=== PATIENT | female | born 1945 | race Caucasian/White ===

== ENCOUNTER 2018-09-04 03:25 | Emergency (ER) | payer MEDICARE ==
[~2018-09-04] VITALS: Ht 170.1 cm; Wt 77.1 kg
--- NOTE | ~2018-09-04 | EKG ---
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
[~2018-09-04 03:25] MED LIST: CIPRO XR500 MG PO; CITALOPRAM20 MG; CITRACAL + D 311 TAB PO; COMBIVENT1 ARO IH; DOXYCYCLINE MO100 MG PO; ELITE MAGNESIUM1 TAB PO; HYDROCHLOROTHIA25 MG; LISINOPRIL10 MG; NAPROSYN500 MG PO; PHENERGAN W/DM120 ML PO; PRAVACHOL40 MG PO; PROTONIX40 MG PO; PYRIDIUM200 MG PO; VICODIN 5/500 505 MG PO; VITAMIN D5000 I2 PO; VOLTAREN50 M1 PO
[2018-09-04 03:48] LABS: BILIRUBIN NEGATIVE (NEGATIVE); BLOOD TRACE-INTACT (NEGATIVE); CLARITY CLEAR (CLEAR); COLOR YELLOW (YELLOW); GLUCOSE NEGATIVE (NEGATIVE); KETONE NEGATIVE (NEGATIVE); LEUKO ESTERASE NEGATIVE (NEGATIVE); NITRITE NEGATIVE (NEGATIVE); SPECIFIC GRAVITY 1.015 (1.005-1.030); UROBILINOGEN 0.2 E.U./dl (0.2-1.0)
[2018-09-04 03:55] LABS: WBC 0-2 wbc/hpf (0-5)
[2018-09-04 04:08] LABS: HEMATOCRIT 35.6 % (37.0-47.0); HEMOGLOBIN 11.9 g/dl (12.0-16.0); MEAN CELL VOLUME 88.8 fl (81.0-99.0); MEAN CORPUSCULAR HGB 29.7 pg (27.0-31.0); MEAN CORPUSCULAR HGB CONC 33.4 g/dl (33.0-37.0); MEAN PLATELET VOLUME 10.3 fl (9.6-12.3); PLATELET COUNT AUTOMATED 140 10*3/uL (130-400); RED BLOOD COUNT 4.01 10*6/uL (4.10-5.10); RED CELL DISTRI WIDTH 13.4 % (0-14.5); WHITE BLOOD COUNT 10.4 10*3/uL (4.8-10.8)
[2018-09-04 04:25] LABS: ALBUMIN 2.6 gm/dl (3.1-4.5); ALKALINE PHOSPHATASE 71 U/L (45-117); BUN 21 mg/dl (7-24); CHLORIDE 105 mmol/L (98-107); CREATININE 0.54 mg/dL (0.55-1.02); POTASSIUM 3.7 mmol/L (3.5-5.1); SGOT/AST 20 IU/L (3-35); SGPT/ALT 18 U/L (12-78); SODIUM 139 mmol/L (136-145); TOTAL PROTEIN 5.8 gm/dL (6.4-8.2)
[2018-09-04 04:27] LABS: TOTAL CELLS COUNTED 100 #CELLS
[2018-09-04 04:28] LABS: PLATELET SUFFICIENCY LOW (NORMAL)
[2018-09-04 04:29] LABS: TROPONIN I < 0.015 ng/ml (<0.045)
[2018-09-04] MEDS ORDERED: ANASTROZOLE1 M1 PO (05:03)
[2018-09-04] MEDS ORDERED: ASPIRIN CHEWABL81 MG PO (05:03)
[2018-09-04] MEDS ORDERED: BACLOFEN20 M1 PO (05:03)
[2018-09-04] MEDS ORDERED: LISINOPRIL40 MG PO (05:04)
[2018-09-04] MEDS ORDERED: MULTIVITAMINS1 EAC5 PO (05:04)
[2018-09-04] MEDS ORDERED: NEURONTIN300 MG PO (05:04)
[2018-09-04] MEDS ORDERED: PREDNISONE20 M1 PO (05:05)
[2018-09-04] MEDS ORDERED: MIRALAX17 GM PO (05:05)
[2018-09-04] MEDS ORDERED: PROCHLORPERAZIN10 MG PO (05:06)
[2018-09-04] MEDS ORDERED: MELATONIN5 M6 PO (05:06)
[2018-09-04] MEDS ORDERED: NICODERM CQ1 EAC2 T (05:07)
[2018-09-04] MEDS ORDERED: ALBUTEROL2.5 MG/0.5 INH (05:07)
[2018-09-04] MEDS ORDERED: OXYGEN NAS (05:08)
[2018-09-04] MEDS ORDERED: TRELEGY ELLIPT1 EACH INH (05:08)
== END 2018-09-04 08:21 | disposition short-term general hospital (02) ==
LOC: ED 03:25
PROVIDERS: Emergency Medicine
DX: J18.9 Pneumonia, unspecified organism (principal); J96.90 Respiratory failure, unspecified, unspecified whether with hypoxia or hypercapnia; R00.0 Tachycardia, unspecified; Z79.899 Other long term (current) drug therapy; Z79.82 Long term (current) use of aspirin; Z88.1 Allergy status to other antibiotic agents; Z88.6 Allergy status to analgesic agent; Z88.8 Allergy status to other drugs, medicaments and biological substances